=== PATIENT | male | born 1960 | race Caucasian/White ===

== ENCOUNTER 2018-09-11 13:14 | Inpatient (IN) | payer OTHER ==
[~2018-09-11] VITALS: Ht 185.4 cm; Wt 117.3 kg
[2018-09-11 13:21] VITALS: BP 143/97
[2018-09-11 14:06] LABS: URINE BILIRUBIN NEGATIVE (Negative); URINE BLOOD TRACE (Negative); URINE CLARITY CLEAR; URINE COLOR YELLOW; URINE GLUCOSE-RANDOM* NEGATIVE (Negative); URINE KETONES NEGATIVE (Negative); URINE NITRITE-REFLEX NEGATIVE (Negative); URINE PROTEIN (DIPSTICK) NEGATIVE (Negative); URINE SPECIFIC GRAVITY 1.015 (1.005-1.035); URINE UROBILINOGEN 0.2 E.U./dl (0.2-1.0)
[2018-09-11 14:08] LABS: URINE LEUKOCYTES-REFLEX 1+ (Negative)
[2018-09-11 14:15] LABS: BACTERIA-REFLEX None Seen /HPF (None Seen); CASTS None Seen /LPF (None Seen); CRYSTALS None Seen /LPF (None Seen); SQUAMOUS None Seen /LPF (0-3); URINE RBC 0-2 Rare /HPF (0-2); URINE WBC-REFLEX 6-15 Few /HPF (0-5)
[2018-09-11 14:52] LABS: ABSOLUTE NEUTROPHILS 6.2 thou/uL (1.4-8.2); BASOPHILS 0.7 % (0.0-2.0); HEMATOCRIT 37.6 % (42.0-52.0); HEMOGLOBIN 12.6 gm/dL (14.0-18.0); LYMPHOCYTES 10.9 % (24.0-44.0); MCH 29.4 pg (26.0-34.0); MCHC 33.5 g/dL (28.0-37.0); MONOCYTES 5.1 % (1.0-8.0); PLATELET COUNT 167 thou/uL (150-400); POLYS 81.3 % (36.0-66.0); RBC 4.28 mil/uL (4.50-6.00); RDW 14.1 % (10.5-14.5); WBC 7.7 thou/uL (4.0-11.0)
[2018-09-11 15:40] LABS: CALCIUM 9.3 mg/dL (8.5-10.1); CREATININE 8.4 mg/dL (0.7-1.3); POTASSIUM 5.2 mmol/L (3.5-5.1)
[2018-09-11 15:46] LABS: ALBUMIN 3.3 g/dL (3.4-5.0); TOTAL BILIRUBIN 0.6 mg/dL (<0.1-1.0); TOTAL PROTEIN 7.3 g/dL (6.4-8.2)
--- NOTE | 2018-09-11 16:28 | NUR ---
TOYA (SISTER - [facility]ARDIAN) [phone]
[2018-09-11 18:57] VITALS: BP 150/85
[2018-09-11 19:02] VITALS: BP 150/85
[2018-09-11 19:11] VITALS: BP 146/79
[2018-09-11 19:41] VITALS: BP 166/74
--- NOTE | 2018-09-11 23:19 | NUR ---
PT ARRIVED ON UNIT 193. PT ALERT AND ORIENTED. ADMISSION COMPLETE, ASSESSMENT COMPLETE. VSS. IV DRESSING C/D/I, NO SIGNS OF INFILTRATION. PT DENIES N/V. REPORTS PAIN, SEE EMAR. WILL CONTINUE POC UNTIL EOS.
[2018-09-12 03:51] VITALS: BP 142/77
[2018-09-12 05:46] LABS: ALBUMIN 2.7 g/dL (3.4-5.0); CALCIUM 8.2 mg/dL (8.5-10.1); MAGNESIUM 1.8 mg/dL (1.8-2.4); PHOSPHORUS 3.1 mg/dL (2.5-4.9)
[2018-09-12 05:49] LABS: CREATININE 1.8 mg/dL (0.7-1.3); POTASSIUM 4.1 mmol/L (3.5-5.1)
--- NOTE | 2018-09-12 10:39 | NUR ---
Assess for high nutrition screening trigger. Admit with KIM, bilateral hydronephrosis. Pt reports not eating much for past week but today ate everything on breakfast tray. Does not weigh himself at home, so not sure on any wt changes. BMI is 34.1 obesity. Renal function has signficantly improved with aggressive IVF running 125ml/hr. Low nutrition risk
[2018-09-12 10:57] VITALS: BP 138/68
--- NOTE | 2018-09-12 14:20 | NUR ---
INITIAL ASSESSMENT: Pt evaluated for d/c planning needs. Reviewed chart and spoke with nurse and pt. Pt is alert and oriented. Pt lives in house with sister and sister's . Pt was independent with ADL's and used no DME. Pt has not had home health in the past. Pt plans on returning home with sister on d/c from hospital and then moving to [place] to be closer to sister Subha. Will remain available to assist as needed.
[2018-09-12 20:30] VITALS: BP 154/77
[2018-09-13 04:04] VITALS: BP 150/82
[2018-09-13 06:53] LABS: CALCIUM 8.4 mg/dL (8.5-10.1); CREATININE 0.9 mg/dL (0.7-1.3); MAGNESIUM 1.7 mg/dL (1.8-2.4); POTASSIUM 4.3 mmol/L (3.5-5.1)
[2018-09-13 07:39] VITALS: BP 152/86
[2018-09-13] MEDS ORDERED: FLOMAX0.4 MG PO (10:42)
[2018-09-13] MEDS ORDERED: CIPRO250 M1 PO (10:44)
[2018-09-13 14:06] VITALS: BP 152/86
[2018-09-13 15:25] VITALS: BP 152/86
[2018-09-13 16:12] VITALS: BP 152/86
--- NOTE | 2018-09-13 16:17 | NUR ---
PT DISCHARGED WITH SISTER, DISCHARGE PAPERS GONE OVER SIGNED AND COPY IN CHART. IV ACSESS DCD ALL BELONGINGS PACKED AND SENT WITH PATIENT. EDUCATION AND TEACHING ABOUT MENA CATH AND HOW TO EMPTY MENA
== END 2018-09-13 16:00 | disposition home or self-care (01) | DRG 689 ==
LOC: ER 13:14 → 4E 17:37 → EROBS 17:37 → 4E 19:22 → ENTRNSPT 09-13 15:51 → EDTRNSPTSTS 09-13 15:57 → 4E 09-13 16:00
PROVIDERS: Nurse Practitioner; Physician Assistant; ADMIT Internal Medicine
DX: N13.6 Pyonephrosis (principal); E43 Unspecified severe protein-calorie malnutrition; N17.9 Acute kidney failure, unspecified; E86.0 Dehydration; E87.5 Hyperkalemia; K59.00 Constipation, unspecified
CPT/HCPCS: 10084